=== PATIENT | male | born 1960 | race Caucasian/White ===

== ENCOUNTER 2020-10-03 07:16 | Emergency (ER) | payer OTHER ==
--- OUTSIDE RECORDS SUMMARY | 2020-10-03 07:18 | XMS REPORT | Continuity of Care Document ---
:1960 Author Organization [facility] t Address [address] [place] [address] Care Team Providers Name Role Phone 1, Sleep Lab Bed Attending Clinician Unavailable Doctor Unassigned, Name Attending Clinician Unavailable Problems This patient has no known problems. Allergies, Adverse Reactions, Alerts This patient has no known allergies or adverse reactions. Medications This patient has no known medications. Procedures This patient has no known procedures. Encounters Start End Encounter Admission Attending Care Care Encounter Source Date/Time Date/Time Type Type Clinicians Facility Department ID 2019-05-22 2019-05-22 [employer] 1, [facility] [id number] 12:30:19 15:00:19 Visit Sleep Lab [place] [id number] [place] [id number] [place] [id number] 2019-05-22 2019-05-22 Orders Doctor WELLS [id number] 00:00:00 00:00:00 Only Unassigned, W[place]LEY [id number] [facility] [id number] 2019-04-30 2019-04-30 [employer] 1, [facility] [id number] 14:55:37 17:25:37 Visit Sleep Lab [place] [id number] [facility] [id number] [place] [phone] 193 2019-04-30 2019-04-30 Orders Doctor WELLS [id number] 00:00:00 00:00:00 Only Unassigned, WESLEY [id number] [facility] [id number] [id number] Results This patient has no known results.
[2020-10-03] MEDS ORDERED: predniSONE 20 MG TAB ONE (08:33)
[2020-10-03] MEDS ORDERED: KETOROLAC 30 MG/ML INJ ONE (08:33)
[2020-10-03 09:56] LABS: SARS-COV-2 RT PCR POSITIVE (NEGATIVE)
--- NOTE | 2020-10-03 10:00 | ER ---
Nurse's Notes [facility] Name: Zhao Palencia Age: 60 yrs Sex: Male : 1960 Arrival Date: 10/03/2020 Time: 07:19 Bed 20 Private MD: Diagnosis: Acute upper respiratory infection, unspecified;Coronavirus infection, unspecified Presentation: 10/03 07:28 Chief complaint: Cough, SOB, chills, hot flashes, dizziness, headache, body aches, and hb intermittent N/V/D x 9 days. tested COVID positive 2 weeks ago. Coronavirus screen: Client presents with at least one sign or symptom that may indicate coronavirus-19. Standard/surgical mask placed on the client. Provider contacted for isolation considerations. Ebola Screen: No symptoms or risks identified at this time. Initial Sepsis Screen: Does the patient meet any 2 criteria? No. Patient's initial sepsis screen is negative. Does the patient have a suspected source of infection? No. Patient's initial sepsis screen is negative. Risk Assessment: Do you want to hurt yourself or someone else? Patient reports no desire to harm self or others. Onset of symptoms was September 25, 2020. 07:28 Method Of Arrival: Ambulatory hb 07:28 Acuity: MAIRA GUADALUPE 3 hb Historical: - Allergies: 07:31 No Known Allergies; hb - Home Meds: 08:43 losartan oral oral [Active]; Synthroid 125 mcg Oral tab 1 tab once daily [Active]; jl7 - PMHx: 08:43 Hypertension; Hypothyroidism; jl7 - Immunization history:: Adult Immunizations up to date. - Social history:: Smoking status: Patient denies any tobacco usage or history of. Patient/guardian denies using alcohol, street drugs, The patient lives with family. - Family history:: not pertinent. Screenin:36 Abuse screen: Denies threats or abuse. Denies injuries from another. Nutritional jl7 screening: No deficits noted. Tuberculosis screening: No symptoms or risk factors identified. Fall Risk None identified. Assessment: 08:36 General: Appears in no apparent distress. uncomfortable, Behavior is calm, cooperative, jl7 appropriate for age. Pain: Complains of pain in SILVEIRA Pain currently is 6 out of 10 on a pain scale. Neuro: Level of Consciousness is awake, alert, obeys commands, Oriented to person, place, time, situation. Cardiovascular: Patient's skin is warm and dry. Respiratory: Airway is patent Respiratory effort is even, unlabored, Respiratory pattern is regular, agonal. Derm: Skin is pink, warm \T\ dry. 09:17 Reassessment: Patient appears in no apparent distress at this time. Patient and/or jl7 family updated on plan of care and expected duration. Pain level reassessed. Patient is alert, oriented x 3, equal unlabored respirations, skin warm/dry/pink. SILVEIRA rated 4/10 at this time, provided pt with cool pack to apply to forehead while awaiting lab results Patient states feeling better. Vital Signs: 07:28 BP 160 / 105; Pulse 100; Resp 18; Temp 97.7; Pulse Ox 100% on R/A; Weight 117.93 kg; hb Height 6 ft. (182.88 cm); Pain 4/10; 08:36 BP 158 / 98; jl7 09:17 BP 140 / 90; Pulse 78; Resp 17; Pulse Ox 100% ; Pain 4/10; jl7 07:28 Body Mass Index 35.26 (117.93 kg, 182.88 cm) hb ED Course: 07:19 Patient arrived in ED. rg4 07:31 Triage completed. hb 07:31 Arm band placed on. hb 07:44 Glen Villa MD is Attending Physician. ma2 07:53 Jennifer Hendricks RN is Primary Nurse. jl7 08:36 Patient has correct armband on for positive identification. Placed in gown. Bed in low jl7 position. Call light in reach. Side rails up X 1. 08:38 COVID swab sent to lab. Flu and/or RSV swab sent to lab. jl7 10:07 No provider procedures requiring assistance completed. Patient did not have IV access jl7 during this emergency room visit. Administered Medications: 08:35 Drug: TORadol 60 mg Route: IM; Site: right gluteus; jl7 09:00 Follow up: Response: No adverse reaction; Pain is decreased jl7 08:36 Drug: predniSONE 40 mg Route: PO; jl7 09:19 Follow up: Response: No adverse reaction jl7 Outcome: 09:59 Discharge ordered by . ma2 10:07 Discharged to home ambulatory. jl7 10:07 Condition: stable 10:07 Discharge instructions given to patient, family, Instructed on discharge instructions, follow up and referral plans. medication usage, Demonstrated understanding of instructions, follow-up care, medications, Prescriptions given X 3. 10:08 Patient left the ED. jl7 Signatures: Hermelinda Cannon, RN RN Justine Fatima rg4 Jennifer Hendricks RN RN jl7 Glen Villa MD MD ma2 Corrections: (The following items were deleted from the chart) 09:18 08:36 Pain: Complains of pain in SILVEIRA Pain currently is 4 out of 10 on a pain scale. jl7 jl7
--- NOTE | 2020-10-03 10:00 | EDPHYS ---
Physician Documentation [facility] Name: Zhao Palencia Age: 60 yrs Sex: Male : 1960 Arrival Date: 10/03/2020 Time: 07:19 Bed 20 Private MD: ED Physician Glen Villa HPI: 10/03 08:58 This 60 yrs old Male presents to ER via Ambulatory with complaints of Flu ma2 Symptoms. 08:58 The patient or guardian reports flu symptoms. Onset: The symptoms/episode ma2 began/occurred gradually, 1 week(s) ago. Severity of symptoms: At their worst the symptoms were mild, in the emergency department the symptoms are unchanged. Associated signs and symptoms: The patient has no apparent associated signs or symptoms. The patient has experienced similar episodes in the past. Historical: - Allergies: 07:31 No Known Allergies; hb - Home Meds: 08:43 losartan oral oral [Active]; Synthroid 125 mcg Oral tab 1 tab once daily [Active]; jl7 - PMHx: 08:43 Hypertension; Hypothyroidism; jl7 - Immunization history:: Adult Immunizations up to date. - Social history:: Smoking status: Patient denies any tobacco usage or history of. Patient/guardian denies using alcohol, street drugs, The patient lives with family. - Family history:: not pertinent. ROS: 08:58 Constitutional: Negative for fever, chills, and weight loss. ma2 08:58 All other systems are negative. Exam: 08:58 Constitutional: This is a well developed, well nourished patient who is awake, alert, ma2 and in no acute distress. Head/Face: Normocephalic, atraumatic. Eyes: Pupils equal round and reactive to light, extra-ocular motions intact. Lids and lashes normal. Conjunctiva and sclera are non-icteric and not injected. Cornea within normal limits. Periorbital areas with no swelling, redness, or edema. ENT: Nares patent. No nasal discharge, no septal abnormalities noted. Tympanic membranes are normal and external auditory canals are clear. Oropharynx with no redness, swelling, or masses, exudates, or evidence of obstruction, uvula midline. Mucous membranes moist. Neck: Trachea midline, no thyromegaly or masses palpated, and no cervical lymphadenopathy. Supple, full range of motion without nuchal rigidity, or vertebral point tenderness. No Meningismus. Chest/axilla: Normal chest wall appearance and motion. Nontender with no deformity. No lesions are appreciated. Cardiovascular: Regular rate and rhythm with a normal S1 and S2. No gallops, murmurs, or rubs. Normal PMI, no JVD. No pulse deficits. Respiratory: Lungs have equal breath sounds bilaterally, clear to auscultation and percussion. No rales, rhonchi or wheezes noted. No increased work of breathing, no retractions or nasal flaring. Abdomen/GI: Soft, non-tender, with normal bowel sounds. No distension or tympany. No guarding or rebound. No evidence of tenderness throughout. Skin: Warm, dry with normal turgor. Normal color with no rashes, no lesions, and no evidence of cellulitis. MS/ Extremity: Pulses equal, no cyanosis. Neurovascular intact. Full, normal range of motion. Neuro: Awake and alert, GCS 15, oriented to person, place, time, and situation. Cranial nerves II-XII grossly intact. Motor strength 5/5 in all extremities. Sensory grossly intact. Cerebellar exam normal. Normal gait. Vital Signs: 07:28 BP 160 / 105; Pulse 100; Resp 18; Temp 97.7; Pulse Ox 100% on R/A; Weight 117.93 kg; hb Height 6 ft. (182.88 cm); Pain 4/10; 08:36 BP 158 / 98; jl7 09:17 BP 140 / 90; Pulse 78; Resp 17; Pulse Ox 100% ; Pain 4/10; jl7 07:28 Body Mass Index 35.26 (117.93 kg, 182.88 cm) hb MDM: 07:44 Patient medically screened. ma2 08:58 Differential Diagnosis: Bronchitis Influenza Upper Respiratory Infection Sinusitis ma2 Pharyngitis. Data reviewed: vital signs, nurses notes. Counseling: I had a detailed discussion with the patient and/or guardian regarding: the historical points, exam findings, and any diagnostic results supporting the discharge/admit diagnosis, the presence of at least one elevated blood pressure reading (>120/80) during this emergency department visit, the need for outpatient follow up. Response to treatment: the patient's symptoms have markedly improved after treatment, is + for covid, he has symptoms of bronchitis +/- covid, sats wnl, he has just finished a z-pack . 10/03 09:56 Order name: COVID-19/FLU A+B [facility] 10/03 08:11 Order name: Document PUI#; Complete Time: 08:36 ma2 10/03 08:11 Order name: Droplet/Contact Precautions; Complete Time: 08:36 ma2 10/03 08:11 Order name: Labs collected and sent; Complete Time: 08:36 ma2 10/03 08:11 Order name: Notify Health Dept [phone]/ ; Complete Time: 08:36 ma2 10/03 08:11 Order name: O2 Per Protocol; Complete Time: 08:36 ma2 Administered Medications: 08:35 Drug: TORadol 60 mg Route: IM; Site: right gluteus; jl7 09:00 Follow up: Response: No adverse reaction; Pain is decreased jl7 08:36 Drug: predniSONE 40 mg Route: PO; 7 09:19 Follow up: Response: No adverse reaction jl7 Disposition: 10/03/20 09:59 Discharged to Home. Impression: Acute upper respiratory infection, unspecified, Coronavirus infection, unspecified. - Condition is Stable. - Discharge Instructions: Upper Respiratory Infection, Adult. - Prescriptions for Albuterol Sulfate 2.5 mg /3 mL (0.083 %) Inhalation Solution for Nebulization - inhale 1 unit by NEBULIZATION route every 8 hours As needed; 1 box. Diclofenac Sodium 75 mg Oral Tablet Sustained Release - take 1 tablet by ORAL route 2 times per day; 30 tablet. Medrol (Manjinder) 4 mg Oral Tablets, Dose Pack - take 1 tablet by ORAL route as directed - follow package instructions; 1 packet. - Work release form, Medication Reconciliation Form, Thank You Letter, Antibiotic Education, Prescription Opioid Use form. - Follow up: Private Physician; When: Tomorrow; Reason: Continuance of care. Signatures: Dispatcher [employer] [facility] Hermelinda Cannon RN Jennifer Dukes RN RN jl7 Glen Villa MD MD ma2 Corrections: (The following items were deleted from the chart) 09:11 08:11 Influenza Screen (A \T\ B)+BA.LAB.BRZ ordered. EDMS EDMS 09:11 08:15 CORONAVIRUS+MR.LAB.BRZ ordered. EDMS EDMS 10:08 09:59 10/03/2020 09:59 Discharged to Home. Impression: Acute upper respiratory jl7 infection, unspecified; Coronavirus infection, unspecified. Condition is Stable. Discharge Instructions: Upper Respiratory Infection, Adult. Prescriptions for Albuterol Sulfate 2.5 mg /3 mL (0.083 %) Inhalation Solution for Nebulization - inhale 1 unit by NEBULIZATION route every 8 hours As needed; 1 box, Diclofenac Sodium 75 mg Oral Tablet Sustained Release - take 1 tablet by ORAL route 2 times per day; 30 tablet, Medrol (Manjinder) 4 mg Oral Tablets, Dose Pack - take 1 tablet by ORAL route as directed - follow package instructions; 1 packet. and Forms are Medication Reconciliation Form, Thank You Letter, Antibiotic Education, Prescription Opioid Use. Follow up: Private Physician; When: Tomorrow; Reason: Continuance of care. ma2
[2020-10-03 10:14] VITALS: TEMP 97.7; O2SAT 100
[2020-10-03 10:16] VITALS: BP 140/90
== END 2020-10-03 10:08 | disposition home or self-care (01) ==
LOC: ER 07:16
DX: U07.1 COVID-19 (principal); J06.9 Acute upper respiratory infection, unspecified; I10 Essential (primary) hypertension; E03.9 Hypothyroidism, unspecified
CPT/HCPCS: 0240U; J7512; 96372; 99283

== ENCOUNTER 2021-12-23 07:26 | Observation (INO) | payer OTHER ==
--- OUTSIDE RECORDS SUMMARY | 2021-12-23 07:29 | XMS REPORT | Continuity of Care Document ---
:1960 Author Organization [facility] t Address [address] [place] [address] [address] [place] [address] Care Team Providers Name Role Phone Kate Powers Primary Care Physician 2, Lab Attending Clinician Unavailable Caden DICKERSON C Attending Clinician Doctor Unassigned, Name Attending Clinician Unavailable 1, Sleep Lab Bed Attending Clinician Unavailable Payers Payer Name Policy Type Policy Number Effective Date Expiration Date S ource Problems This patient has no known problems. Allergies, Adverse Reactions, Alerts Allergy Allergy Status Severity Reaction(s) Onset Inactive Treating Comm ents Source Name Type Date Date Clinician Statins- Propensi Active Other - See LE U niv[facility]o [facility] to comments 6- fatigue ity of [place] adverse 00:00: [place] e reaction 00 Medical Inhibito s Branch rs Social History Social Habit Start Date Stop Date Quantity Comments Source Tobacco use and 2017-02-09 2017-02-09 Never used [facility] exposure 00:00:00 00:00:00 Medical Branch Sex Ass[birth year] [facility] 00:00:00 00:00:00 Medical Branch Smoking Status Start Date Stop Date Source Never smoker [facility] Branch Medications Ordered Filled Start Stop Current Ordering Indication Dosage Frequency Signature Comments Components Source Medication Medication Date Date Medication? Clinician (SIG) Name Name diclofenac 2018- Yes 75mg Take 1 Unive rs 75 mg EC 2-27 tablet by ity of tablet 00:00: mouth [place] 00 (two) Medical times Branch daily with meals. methylPREDN Yes Take by Un kayode ISolone 2-27 mouth ity of (MEDROL, 00:00: SEE-INSTRU David as YOLANDA,) 4 mg 00 CTIONS. Medica l tablets follow Branch package directions diclofenac Yes 75mg Take 1 Unive rs 75 mg EC 2-27 tablet by ity of tablet 00:00: mouth 2 (two) Medical times [place] daily with meals. methylPREDN Yes Take by Un kayode ISolone 2-27 mouth ity of (MEDROL, 00:00: SEE-INSTRU [place] as YOLANDA,) 4 mg 00 CTIONS. Medica l tablets follow Branch package directions meloxicam Yes Univers 15 mg 6-18 ity of tablet 00:00: [facility] meloxicam Yes Univers 15 mg 6-18 ity of tablet 00:00: [facility] fluticasone Yes Univer s 0.05 % 6-06 ity of cream 00:00: [facility] fluticasone Yes Univer s 0.05 % 6-06 ity of cream 00:00: [facility] ALPRAZolam Yes Univers 0.5 mg 5-23 ity of tablet 00:00: [facility] BENICAR 20 0 Yes Univers mg tablet 5-23 ity of 00:00: [facility] ALPRAZolam 0 Yes Univers 0.5 mg 5-23 ity of tablet 00:00: [facility] BENICAR 20 0 Yes Univers mg tablet 5-23 ity of 00:00: [place] [facility] Branch SYNTHROID Yes Univers 150 mcg 5-17 ity of tablet 00:00: [facility] SYNTHROID Yes Univers 150 mcg 5-17 ity of tablet 00:00: [facility] Procedures Procedure Date / Time Performed Performing Clinician Sour e PHYSICIAN ORDERS 2021-09-28 06:01:00 Doctor Unassigned, No [facility]ive [facility] [place] Name Medical Branch Encounters Start End Encounter Admission Attending Care Care Encounter Source Date/Time Date/Time Type Type Clinicians Facility Department ID 2021-10-06 2021-10-06 Exchange Floor Manager 2, Adc Lab [facility] [id number] Univers 09:45:00 09:45:00 Visit Linnea Negrete KUSH[place] 350.1.1 3.10 ity of [place] [id number] Juan s [place] [id number] Ak dical [address] 2021-09-28 2021-09-28 Orders Doctor RUSSELL [id number] Univers 00:00:00 00:00:00 Only Unassigned, [place] [id number] ity of [facility] [id number] David as [id number] [address] 2019-05-22 2019-05-22 Exchange Floor Manager 1, [facility] [id number] 12:30:19 15:00:19 Visit Sleep Lab [place] [id number] [place] [id number] [place] [id number] 193 2019-05-22 2019-05-22 Orders Doctor WELLS [id number] 00:00:00 00:00:00 Only Unassigned, WESLEY [id number] [facility] [id number] [id number] 2019-04-30 2019-04-30 Exchange Floor Manager 1, [facility] [id number] 14:55:37 17:25:37 Visit Sleep Lab [place] [id number] [place] [id number] [place] [id number] 193 2019-04-30 2019-04-30 Orders Doctor RUSSELL [id number] 00:00:00 00:00:00 Only Unassigned, WESLEY [id number] [facility] [id number] [id number] Results This patient has no known results.
[2021-12-23] MEDS ORDERED: ASPIRIN 81 MG CHEWABLE TABLET ONE (07:47)
--- NOTE | 2021-12-23 07:59 | EDPHYS ---
Physician Documentation [facility] Name: Zhao Palencia Age: 61 yrs Sex: Male : 1960 Arrival Date: 12/23/2021 Time: 07:27 Bed 6 Private MD: ED Physician Josemanuel Moreno HPI: 12/23 07:46 This 61 yrs old Male presents to ER via Wheelchair with complaints of Chest arron Pressure. 07:46 The patient or guardian reports chest pain that is located primarily in the substernal arron area. Onset: just prior to arrival, this morning. The pain does not radiate. Associated signs and symptoms: Pertinent positives: shortness of breath. The chest pain is described as a heaviness, causing indigestion, a pressure. Duration: The patient or guardian reports multiple episodes. Severity of pain: At its worst the pain was mild in the emergency department the pain has improved. The patient has not experienced similar symptoms in the past. Historical: - Allergies: 07:38 No Known Allergies; jl7 - Home Meds: 07:38 losartan Oral [Active]; Synthroid 125 mcg Oral tab 1 tab once daily [Active]; jl7 - PMHx: 07:38 Hypertension; Hypothyroidism; jl7 - Immunization history:: Client reports receiving the 2nd dose of the Covid vaccine, Moderna. - Social history:: Smoking status: Patient denies any tobacco usage or history of. Patient uses alcohol, on a daily basis. 2-3 drinks. - Family history:: not pertinent. ROS: 07:46 Constitutional: Negative for fever, chills, and weight loss, Eyes: Negative for injury, arron pain, redness, and discharge, ENT: Negative for injury, pain, and discharge, Neck: Negative for injury, pain, and swelling, Abdomen/GI: Negative for abdominal pain, nausea, vomiting, diarrhea, and constipation, Back: Negative for injury and pain, : Negative for injury, bleeding, discharge, and swelling, MS/Extremity: Negative for injury and deformity, Skin: Negative for injury, rash, and discoloration, Neuro: Negative for headache, weakness, numbness, tingling, and seizure, Psych: Negative for depression, anxiety, suicide ideation, homicidal ideation, and hallucinations, Allergy/Immunology: Negative for hives, rash, and allergies, Endocrine: Negative for neck swelling, polydipsia, polyuria, polyphagia, and marked weight changes, Hematologic/Lymphatic: Negative for swollen nodes, abnormal bleeding, and unusual bruising. 07:46 Cardiovascular: Positive for chest pain. 07:46 Respiratory: Positive for shortness of breath, at rest. Exam: 07:46 Constitutional: This is a well developed, well nourished patient who is awake, alert, arron and in no acute distress. Head/Face: Normocephalic, atraumatic. Eyes: Pupils equal round and reactive to light, extra-ocular motions intact. Lids and lashes normal. Conjunctiva and sclera are non-icteric and not injected. Cornea within normal limits. Periorbital areas with no swelling, redness, or edema. ENT: Nares patent. No nasal discharge, no septal abnormalities noted. Tympanic membranes are normal and external auditory canals are clear. Oropharynx with no redness, swelling, or masses, exudates, or evidence of obstruction, uvula midline. Mucous membranes moist. Neck: Trachea midline, no thyromegaly or masses palpated, and no cervical lymphadenopathy. Supple, full range of motion without nuchal rigidity, or vertebral point tenderness. No Meningismus. Chest/axilla: Normal chest wall appearance and motion. Nontender with no deformity. No lesions are appreciated. Cardiovascular: Regular rate and rhythm with a normal S1 and S2. No gallops, murmurs, or rubs. Normal PMI, no JVD. No pulse deficits. Respiratory: Lungs have equal breath sounds bilaterally, clear to auscultation and percussion. No rales, rhonchi or wheezes noted. No increased work of breathing, no retractions or nasal flaring. Abdomen/GI: Soft, non-tender, with normal bowel sounds. No distension or tympany. No guarding or rebound. No evidence of tenderness throughout. Back: No spinal tenderness. No costovertebral tenderness. Full range of motion. Male : Normal genitalia with no discharge or lesions. Skin: Warm, dry with normal turgor. Normal color with no rashes, no lesions, and no evidence of cellulitis. MS/ Extremity: Pulses equal, no cyanosis. Neurovascular intact. Full, normal range of motion. Neuro: Awake and alert, GCS 15, oriented to person, place, time, and situation. Cranial nerves II-XII grossly intact. Motor strength 5/5 in all extremities. Sensory grossly intact. Cerebellar exam normal. Normal gait. Psych: Awake, alert, with orientation to person, place and time. Behavior, mood, and affect are within normal limits. 07:46 Musculoskeletal/extremity: DVT Exam: No signs of deep vein thrombosis. no pain, no swelling, no tenderness, negative Homans' sign noted on exam, no appreciated bluish discoloration, no erythema, no increased warmth. Vital Signs: 07:28 BP 164 / 67; Pulse 75; Resp 15; Temp 98.1; Pulse Ox 100% on R/A; Weight 120.2 kg; jl7 Height 6 ft. 0 in. (182.88 cm); Pain 5/10; 08:15 BP 166 / 96; Pulse 68; Resp 14; Pulse Ox 97% ; jg9 09:00 BP 154 / 68; Pulse 56; Resp 15 S; Pulse Ox 98% on R/A; jg9 07:28 Body Mass Index 35.94 (120.20 kg, 182.88 cm) 7 MDM: 07:37 Patient medically screened. arron 07:48 Differential diagnosis: abnormal EKG, acute myocardial infarction, coronary artery arron disease chest wall pain, esophagitis, pancreatitis, pneumonia, pneumothorax, pulmonary embolus, stable angina, unstable angina. HEART Score: History: Moderately Suspicious (1), ECG: Normal (0), Age: > 45 and < 65 years (1), Risk Factors: > or = 3 Risk factors for atherosclerotic disease (2), [Hypertension] [+ Family HX] [Obesity] Troponin: < or = 1 x Normal Limit (0). The patient was given aspirin in the Emergency Department. The patient's deep vein thrombosis risk score was calculated as follows: Total Score: 0. This patient was found to be at low risk for a deep vein thrombosis by using the Well's assessment criteria. The patient's pulmonary embolism risk score was calculated as follows: Total Score: 0-2 points. This patient was found to be at low risk for a pulmonary embolism by using the Well's assessment criteria. PAULIE Risk Score: TOTAL SCORE = 0. Data reviewed: vital signs, nurses notes, lab test result(s), EKG, radiologic studies, CT scan, plain films. Data interpreted: telemetry monitor: rate is 75 beats/min, rhythm is regular, Pulse oximetry: on room air is 100 %. Test interpretation: by ED physician or midlevel provider: ECG, plain radiologic studies. Counseling: I had a detailed discussion with the patient and/or guardian regarding: the historical points, exam findings, and any diagnostic results supporting the discharge/admit diagnosis, lab results, radiology results, the need for further work-up and treatment in the hospital. 12/23 07:39 Order name: CBC with Diff [facility] 12/23 07:40 Order name: Basic Metabolic Panel; Complete Time: 08:49 arron 12/23 07:40 Order name: CBC with Diff; Complete Time: 08:26 arron 12/23 07:40 Order name: LFT's; Complete Time: 08:49 arron 12/23 07:40 Order name: Magnesium; Complete Time: 08:49 arron 12/23 07:40 Order name: NT PRO-BNP; Complete Time: 08:49 arron 12/23 07:40 Order name: PT-INR; Complete Time: 08:26 arron 12/23 07:40 Order name: Troponin HS; Complete Time: 08:49 arron 12/23 07:40 Order name: SARS-COV-2 RT PCR (Document "Date of Onset" if Symptomatic) [facility] 12/23 07:40 Order name: Lipase; Complete Time: 08:49 arron 12/23 07:49 Order name: TSH; Complete Time: 08:49 eb 12/23 13:24 Order name: Troponin High Sensitivity [facility] 12/23 07:39 Order name: EKG; Complete Time: 07:40 9 12/23 07:39 Order name: Cardiac monitoring; Complete Time: 07:42 j9 12/23 07:39 Order name: EKG - Nurse/Tech; Complete Time: 07:42 j9 12/23 07:39 Order name: IV Saline Lock; Complete Time: 07:42 j9 12/23 07:39 Order name: Labs collected and sent; Complete Time: 07:42 jg9 12/23 07:39 Order name: O2 Per Protocol; Complete Time: 07:42 jg9 12/23 07:40 Order name: XRAY Chest (1 view); Complete Time: 09:31 arron 12/23 07:40 Order name: EKG; Complete Time: 07:41 arron 12/23 07:40 Order name: CT Chest For PE Angio; Complete Time: 09:31 arron 12/23 07:45 Order name: Echo w/ Doppler [facility] 12/23 13:24 Order name: Lipid Profile [facility] 12/23 07:39 Order name: O2 Sat Monitoring; Complete Time: 07:42 jg9 12/23 07:40 Order name: Cardiac monitoring; Complete Time: 07:41 arron 12/23 07:40 Order name: EKG - Nurse/Tech; Complete Time: 07:41 arron 12/23 07:40 Order name: IV Saline Lock; Complete Time: 07:41 arron 12/23 07:40 Order name: Labs collected and sent; Complete Time: 07:41 arron 12/23 07:40 Order name: O2 Per Protocol; Complete Time: 07:41 arron 12/23 07:40 Order name: O2 Sat Monitoring; Complete Time: 07:41 arron Administered Medications: 07:44 Drug: Aspirin Chewable Tablet 324 mg Route: PO; jg9 08:01 Drug: Pepcid (famotidine) 20 mg Route: IVP; Site: right forearm; jg9 13:09 Follow up: Response: No adverse reaction jg9 08:02 Drug: Lovenox (enoxaparin) 100 mg Route: Sub-Q; Site: right lower abdomen; jg9 13:08 Follow up: Response: No adverse reaction jg9 08:03 Drug: Lopressor (metoprolol TARTRATE)) 25 mg Route: PO; jg9 13:08 Follow up: Response: No adverse reaction; Blood pressure is lowered jg9 Disposition Summary: 12/23/21 07:58 Hospitalization Ordered Hospitalization Status: Observation arron Provider: Sunday Pinto cha Location: Telemetry/MedSurg (observation) arron Condition: Stable arron Problem: new arron Symptoms: have improved arron Bed/Room Type: Standard arron Room Assignment: 207(12/23/21 12:24) ss Diagnosis - Chest pain, unspecified arron - Dyspnea arron - Essential (primary) hypertension arron Forms: - Medication Reconciliation Form arron - SBAR form arron Signatures: Dispatcher [employer] EDJosemanuel Cruz MD MD cha Smirch, Shelby, RN RN Jennifer Farr RN RN jl7 Jaky Quinones RN RN jg9 Corrections: (The following items were deleted from the chart) 08:01 07:40 Chest Single View+RAD.RAD.BRZ ordered. EDMS EDMS 08:16 07:40 BASIC METABOLIC PANEL+C.LAB.BRZ ordered. EDMS EDMS 08:16 07:40 Troponin High Sensitivity+C.LAB.BRZ ordered. EDMS EDMS 12:24 07:58 arron ss
--- NOTE | 2021-12-23 07:59 | ER ---
Nurse's Notes [facility] Name: Zhao Palencia Age: 61 yrs Sex: Male : 1960 Arrival Date: 12/23/2021 Time: 07:27 Bed 6 Private MD: Diagnosis: Chest pain, unspecified;Dyspnea;Essential (primary) hypertension Presentation: 12/23 07:28 Chief complaint: Patient states: Non-radiating left sided chest pain since 0700, jl7 constant, feels like pressure. Coronavirus screen: At this time, the client does not indicate any symptoms associated with coronavirus-19. Ebola Screen: No symptoms or risks identified at this time. Initial Sepsis Screen: Does the patient meet any 2 criteria? No. Patient's initial sepsis screen is negative. Does the patient have a suspected source of infection? No. Patient's initial sepsis screen is negative. Risk Assessment: Do you want to hurt yourself or someone else? Patient reports no desire to harm self or others. Onset of symptoms was December 23, 2021 at 07:00. 07:28 Method Of Arrival: Wheelchair jl7 07:28 Acuity: MARIA GUADALUPE 2 jl7 Triage Assessment: 07:28 General: Appears in no apparent distress. uncomfortable, Behavior is calm, cooperative, jl7 appropriate for age. Pain: Complains of pain in anterior aspect of left upper chest Pain currently is 5 out of 10 on a pain scale. Quality of pain is described as pressure, Pain began 30 min ago. Neuro: Level of Consciousness is awake, alert, obeys commands, Oriented to person, place, time, situation. Cardiovascular: Patient's skin is warm and dry. Respiratory: Airway is patent Respiratory effort is even, unlabored, Respiratory pattern is regular, symmetrical. Derm: Skin is pink, warm \T\ dry. Historical: - Allergies: 07:38 No Known Allergies; jl7 - Home Meds: 07:38 losartan Oral [Active]; Synthroid 125 mcg Oral tab 1 tab once daily [Active]; jl7 - PMHx: 07:38 Hypertension; Hypothyroidism; jl7 - Immunization history:: Client reports receiving the 2nd dose of the Covid vaccine, Moderna. - Social history:: Smoking status: Patient denies any tobacco usage or history of. Patient uses alcohol, on a daily basis. 2-3 drinks. - Family history:: not pertinent. Screenin:40 Abuse screen: Denies threats or abuse. Denies injuries from another. Nutritional jl7 screening: No deficits noted. Tuberculosis screening:. Fall Risk IV access (20 points). Assessment: 07:28 Pain: Pain radiates to left arm-left shoulder. jg9 Vital Signs: 07:28 BP 164 / 67; Pulse 75; Resp 15; Temp 98.1; Pulse Ox 100% on R/A; Weight 120.2 kg; jl7 Height 6 ft. 0 in. (182.88 cm); Pain 5/10; 08:15 BP 166 / 96; Pulse 68; Resp 14; Pulse Ox 97% ; jg9 09:00 BP 154 / 68; Pulse 56; Resp 15 S; Pulse Ox 98% on R/A; jg9 07:28 Body Mass Index 35.94 (120.20 kg, 182.88 cm) jl7 ED Course: 07:27 Patient arrived in ED. ds1 07:28 Jaky Quinones, RN is Primary Nurse. jg9 07:28 Arm band placed on right wrist. jl7 07:30 Patient maintains SpO2 saturation greater than 95% on room air. jl7 07:30 Patient has correct armband on for positive identification. school lunch monitor on. Pulse jl7 ox on. NIBP on. 07:37 Josemanuel Moreno MD is Attending Physician. arron 07:38 Triage completed. jl7 07:38 EKG done, by ED staff, reviewed by Josemanuel Moreno MD. dh3 07:44 Inserted saline lock: 20 gauge in right forearm, using aseptic technique. Blood jg9 collected. 07:57 Sunday Pinto is Hospitalizing Provider. arron 08:29 XRAY Chest (1 view) In Process Unspecified. EDMS 08:57 CT Chest For PE Angio In Process Unspecified. EDMS 13:07 No provider procedures requiring assistance completed. jg9 13:08 Patient admitted, IV remains in place. jg9 Administered Medications: 07:44 Drug: Aspirin Chewable Tablet 324 mg Route: PO; jg9 08:01 Drug: Pepcid (famotidine) 20 mg Route: IVP; Site: right forearm; jg9 13:09 Follow up: Response: No adverse reaction jg9 08:02 Drug: Lovenox (enoxaparin) 100 mg Route: Sub-Q; Site: right lower abdomen; jg9 13:08 Follow up: Response: No adverse reaction jg9 08:03 Drug: Lopressor (metoprolol TARTRATE)) 25 mg Route: PO; jg9 13:08 Follow up: Response: No adverse reaction; Blood pressure is lowered jg9 Outcome: 07:58 Decision to Hospitalize by Provider. arron 13:08 Admitted to Med/surg accompanied by tech, family with patient, with chart, Report jg9 called to LYNNE Segura 13:08 Condition: stable 13:29 Patient left the ED. jg9 Signatures: Dispatcher [employer] EDMS Josemanuel Moreno MD MD cha Sanford, Demi ds1 Jennifer Hendricks RN RN jl7 Nneka Lopes dh3 Jaky Quinones RN RN jg9
[2021-12-23] MEDS ORDERED: METOPROLOL TAR 25 MG TAB ONE (08:02)
[2021-12-23] MEDS ORDERED: ENOXAPARIN 100 MG/ML SYR SQ ONE (08:03)
[2021-12-23] MEDS ORDERED: FAMOTIDINE 20 MG/2 ML VIAL IV ONE (08:03)
[2021-12-23 08:16] LABS: Absolute Lymphocytes (CBC) 1.5 K/uL (0.7-4.9); Lymphocytes % 38.4 % (15.3-44.8); MPV 7.3 fL (7.6-11.3); RBC Red Blood Cell Count 4.09 M/uL (4.33-5.43)
[2021-12-23 08:22] LABS: Protime INR 1.03
[2021-12-23 08:39] LABS: ALT/SGPT 34 U/L (12-78); AST/SGOT 24 U/L (15-37); Albumin 3.7 g/dL (3.4-5.0); Alkaline Phosphatase 74 U/L (45-117); BUN Blood Urea Nitrogen 21 mg/dL (7-18); Bicarbonate 22 mmol/L (21-32); Bilirubin Direct 0.2 mg/dL (0-0.2); Bilirubin Total 0.7 mg/dL (0.2-1.0); Glucose Level 98 mg/dL (74-106); Lipase 48 U/L (73-393); Magnesium 2.3 mg/dL (1.8-2.4); NT PRO-BNP 35 pg/mL (<125); Potassium 4.1 mmol/L (3.5-5.1); Protein, Total 7.8 g/dL (6.4-8.2); Sodium Level 138 mmol/L (136-145); Troponin High Sensitivity 3.8 pg/mL (<58.9)
--- NOTE | 2021-12-23 09:23 | RAD REPORT ---
EXAM DESCRIPTION: CT - Chest For Pe Angio - 12/23/2021 8:55 am CLINICAL HISTORY: Chest pain. Chest pain;Dyspnea COMPARISON: No comparisons TECHNIQUE: CT angiogram of the pulmonary arteries was performed with MIP. All CT scans are performed using dose optimization technique as appropriate and may include automated exposure control or mA/KV adjustment according to patient size. FINDINGS: No evidence of pulmonary thromboembolism. No acute aortic finding demonstrated. The lungs are clear. No significant pericardial or pleural fluid. No concerning bony finding. IMPRESSION: No evidence of pulmonary thromboembolism. No acute lung findings.
--- NOTE | 2021-12-23 09:23 | RAD REPORT ---
EXAM DESCRIPTION: RAD - Chest Single View - 12/23/2021 8:28 am CLINICAL HISTORY: Chest pain;Dyspnea Chest pain. COMPARISON: CHEST PA AND LAT 2 VIEW dated 10/12/2011 FINDINGS: Portable technique limits examination quality. The lungs are grossly clear. The heart is normal in size. No displaced fractures. IMPRESSION: No acute intrathoracic process suspected.
--- NOTE | 2021-12-23 11:57 | P.HP ---
Certification for Inpatient Patient admitted to: Observation With expected LOS: <2 Midnights Practitioner: I am a practitioner with admitting privileges, knowledge of patient current condition, hospital course, and medical plan of care. Services: Services provided to patient in accordance with Admission requirements found in Title 42 Section 412.3 of the Code of Federal Regulations Patient History Date of Service: 12/23/21 Reason for admission: Chest pain History of Present Illness: 61-year-old gentleman with a history of hypertension and hypothyroidism presented to the emergency department with a complaint of left anterior chest pain of sudden onset, waking up from sleep. Patient describes associated chest pressure in the left chest. Chest pain is nonradiating, associated with palpitation and shortness of breath, no associated nausea or vomiting or diaphoresis. Patient denied any abdominal pain. No known aggravating factors or relieving factors. Patient was given aspirin in the ED. EKG demonstrated no significant ischemic changes, initial troponin negative, chest x-ray shows no acute disease. Patient reports a previous stress test 5 to 6 years ago which wa s normal. He is placed under observation for chest pain rule out. - Past Medical/Surgical History Diabetic: No -: Hypertension -: Hypothyroidism - Family History Mother -: Heart disease - Social History Alcohol use: Yes CD- Drugs: No Place of Residence: Home Review of Systems Other: Except as documented, all other systems reviewed and negative. Physical Examination - Physical Exam General: Alert, In no apparent distress, Oriented x3 HEENT: Normocephalic, Mucous membr. moist/pink, Sclerae nonicteric Neck: Supple, JVD not distended Respiratory: Clear to auscultation bilaterally, Normal air movement Cardiovascular: No edema, Regular rate/rhythm, Normal S1 S2, No murmurs Gastrointestinal: Normal bowel sounds, Soft and benign, Non-distended, No tenderness Musculoskeletal: No swelling, No tenderness Integumentary: No rashes, No erythema, No cyanosis Neurological: Normal speech, Normal strength at 5/5 x4 extr, Cranial nerves 3-12 intact Lymphatics: No axilla or inguinal lymphadenopathy - Studies Laboratory Data (last 24 hrs) 12/23/21 07:45: PT 11.3, INR 1.03 12/23/21 07:45: WBC 3.9 L, Hgb 14.0, Hct 41.0, Plt Count 282 12/23/21 07:45: Sodium 138, Potassium 4.1, BUN 21 H, Creatinine 0.83, Glucose 98, Magnesium 2.3, Total Bilirubin 0.7, AST 24, ALT 34, Alkaline Phosphatase 74, Lipase 48 L 12/23/21 07:39: Sodium Cancelled, Potassium Cancelled, BUN Cancelled, Creatinine Cancelled, Glucose Cancelled Assessment and Plan - Problems (Diagnosis) (1) Hypertension Current Visit: Yes Status: Acute (2) Hypothyroidism Current Visit: Yes Status: Acute (3) Chest pain Current Visit: Yes Status: Acute - Plan Place patient under observation. Trend troponin Aspirin, beta-adriana. Check lipid profile Continue home dose Synthroid Echocardiogram done and the result is pending. Cardiology consult. Continue home antihypertensives. Hydralazine as needed for BP spikes. - Advance Directives Does patient have a Living Will: No Does patient have a Durable POA for Healthcare: No
[2021-12-23] MEDS ORDERED: HYDRALAZINE HCL 20 MG/ML VIAL IV PRN (12:00)
[2021-12-23] MEDS ORDERED: NITROGLYCERIN 0.4 MG/TAB SL PRN (12:16)
--- NOTE | 2021-12-23 12:47 | ECHO ---
HEIGHT: 6 ft 0 in WEIGHT: 264 lb 15.93 oz DATE OF STUDY: 12/23/[address]: Josemanuel Moreno MD 2-DIMENSIONAL: YES M.MODE: YES DOPPLER: YES COLOR FLOW: YES TDS: NO PORTABLE: YES DEFINITY: NO BUBBLE STUDY: NO DIAGNOSIS: CHEST PAIN CARDIAC HISTORY: CATHERIZATION: SURGERY: PROSTHETIC VALVE: PACEMAKER: MEASUREMENTS (cm) DIASTOLIC (NORMALS) SYSTOLIC (NORMALS) IVSd 1.1 (0.6-1.2) LA Diam (1.9-4.0) LVEF 54% LVIDd 4.6 (3.5-5.7) LVIDs 3.3 (2.0-3.5) %FS 28% LVPWd 1.1 (0.6-1.2) Ao Diam 3.1 (2.0-3.7) 2 DIMENSIONAL ASSESSMENT: RIGHT ATRIUM: NORMAL LEFT ATRIUM: NORMAL RIGHT VENTRICLE: NORMAL LEFT VENTRICLE: NORMAL TRICUSPID VALVE: NORMAL MITRAL VALVE: NORMAL PULMONIC VALVE: NORMAL AORTIC VALVE: NORMAL PERICARDIAL EFFUSION: NONE AORTIC ROOT: NORMAL LEFT VENTRICULAR WALL MOTION: NORMAL DOPPLER/COLOR FLOW: NORMAL COMMENTS: NORMAL 2D ECHOCARDIOGRAM WITH DOPPLER. NO WALL MOTION ABNORMALITY. NO EFFUISON. TECHNOLOGIST: Eric UGALDE
[2021-12-23 13:24] LABS: Troponin High Sensitivity 3.7 pg/mL (<58.9)
[2021-12-23 15:39] VITALS: TEMP 98.1
[2021-12-23 15:41] VITALS: BP 154/68; O2SAT 98
[2021-12-23 16:23] VITALS: BMI 35.8
--- NOTE | 2021-12-23 16:34 | P.DS ---
Admission Date: 12/23/21 Discharge Date: 12/23/21 Disposition: ROUTINE DISCHARGE Discharge Condition: FAIR Reason for Admission: Chest pain - Problems (1) Hypertension Status: Acute (2) Hypothyroidism Status: Acute (3) Chest pain Status: Acute Brief History of Present Illness: 61-year-old gentleman with a history of hypertension and hypothyroidism presented to the emergency department with a complaint of left anterior chest pain of sudden onset, waking up from sleep. Patient describes associated chest pressure in the left chest. Chest pain is nonradiating, associated with palpitation and shortness of breath, no associated nausea or vomiting or diaphoresis. Patient denied any abdominal pain. No known aggravating factors or relieving factors. Patient was given aspirin in the ED. EKG demonstrated no significant ischemic changes, initial troponin negative, chest x-ray shows no acute disease. Patient reports a previous stress test 5 to 6 years ago which was normal. He is placed under observation for chest pain rule out. Hospital Course: Is on observation on the medical floor and troponin trended. Patient troponin trended negative. He was chest pain-free during my assessment and after admission. He was seen and evaluated by cardiology-Dr. Castellon who recommended discharge for outpatient stress test. Patient lipid profile within acceptable range. He is prescribed aspirin. He is informed to continue his other home medications. He acknowledged the need to call Dr. Castellon next week for arrangement for stress test. Vital Signs/Physical Exam: Temp Pulse Resp BP Pulse Ox 98.1 F 56 15 154/68 H 12/23/21 07:28 12/23/21 09:00 12/23/21 09:00 12/23/21 09:00 General: Alert, In no apparent distress, Oriented x3 HEENT: Mucous membr. moist/pink Neck: Supple, JVD not distended Respiratory: Clear to auscultation bilaterally, Normal air movement Cardiovascular: Regular rate/rhythm, Normal S1 S2, No murmurs Gastrointestinal: Normal bowel sounds, Soft and benign, Non-distended, No tenderness Musculoskeletal: No swelling Integumentary: No rashes Neurological: Normal strength at 5/5 x4 extr Laboratory Data at Discharge: WBC 3.9 K/uL (4.3-10.9) L 12/23/21 07:45 Hgb 14.0 g/dL (13.6-17.9) 12/23/21 07:45 Hct 41.0 % (39.6-49.0) 12/23/21 07:45 Plt Count 282 K/uL (152-406) 12/23/21 07:45 PT 11.3 SECONDS (9.5-12.5) 12/23/21 07:45 INR 1.03 12/23/21 07:45 Sodium 138 mmol/L (136-145) 12/23/21 07:45 Potassium 4.1 mmol/L (3.5-5.1) 12/23/21 07:45 BUN 21 mg/dL (7-18) H 12/23/21 07:45 Creatinine 0.83 mg/dL (0.55-1.3) 12/23/21 07:45 Glucose 98 mg/dL (74-106) 12/23/21 07:45 Magnesium 2.3 mg/dL (1.8-2.4) 12/23/21 07:45 Total Bilirubin 0.7 mg/dL (0.2-1.0) 12/23/21 07:45 AST 24 U/L (15-37) 12/23/21 07:45 ALT 34 U/L (12-78) 12/23/21 07:45 Alkaline Phosphatase 74 U/L (45-117) 12/23/21 07:45 Triglycerides 141 mg/dL (<150) 12/23/21 12:49 Cholesterol 166 mg/dL (<200) 12/23/21 12:49 HDL Cholesterol 64 mg/dL (40-60) H 12/23/21 12:49 Cholesterol/HDL Ratio 2.59 12/23/21 12:49 Lipase 48 U/L (73-393) L 12/23/21 07:45 Home Medications: Aspirin [Aspirin EC] 81 mg PO DAILY #30 tablet. 12/23/21 Atorvastatin Calcium [Lipitor*] 1 tab PO DAILY 12/23/21 Ezetimibe 1 tab PO DAILY 12/23/21 Irbesartan 20 mg PO EVERY 3RD DAY 12/23/21 Levothyroxine Sodium [Synthroid] 1 tab PO DAILY 12/23/21 New Medications: Aspirin [Aspirin EC] 81 mg PO DAILY #30 tablet. Diet: [facility] Activity: Ad jose daniel Followup: Don Castellon MD [ACTIVE - CAN ADMIT] - 1 Week (Please call [phone] for arrangement for stress test.) Waldemar Bob MD [Primary Care Provider] - (Call to schedule appointment)
[2021-12-23 17:37] LABS: Urine Appearance CLEAR (Clear); Urine Bilirubin NEGATIVE (Negative); Urine Blood NEGATIVE (Negative); Urine Color YELLOW (Yellow); Urine Glucose NEGATIVE (Negative); Urine Protein NEGATIVE (Negative); Urine Specific Gravity >=1.030 (1.005-1.030); Urine pH 5.5 (5.0-7.0)
[2021-12-23 18:17] LABS: Urine Microscopic Reflex NO UMIC
[2021-12-23] MEDS ORDERED: METOPROLOL TAR 25 MG TAB PO SCH (21:00)
[2021-12-24] MEDS ORDERED: ENOXAPARIN 40 MG/0.4 ML SQ SCH (09:00)
[2021-12-24] MEDS ORDERED: ASPIRIN EC 81 MG TAB PO SCH (09:00)
--- NOTE | 2021-12-25 | CON ---
Date of Consultation: 12/23/2021 Reason For Consultation: Chest pain. History Of Present Illness: Mr. Palencia is a 61-year-old white male. He is known to me from [facility] ous office visit. He has a history of hypertension and hypothyroidism, otherwise has been fairly hea lthy. He takes losartan and Synthroid at home. Apparently, he had an argument at home with his neph ew, after which he developed some substernal chest pressure that has lasted for hours without any stephanie sea, vomiting, diaphoresis, PND, orthopnea, pedal edema, palpitation, or syncope. He has already rul ed out for NE. His EKG was unremarkable. Chest x-ray was unremarkable. Troponin is negative. He i s pain free now. Past Medical History: As stated above. Allergies: NONE. Review of Systems: Negative. Social History: Negative. Family History: Negative. Medications: Listed earlier. Physical Examination: Vital Signs: Stable, afebrile. HEENT: Negative. Neck: Supple with no bruit. Chest: Clear to auscultation and percussion. Cardiac: Regular rhythm and rate. No murmurs, gallops, or rubs. Abdomen: Benign. EXTREMITIES: Revealed no clubbing, cyanosis, or edema. Diagnostic Data: As stated earlier. Impression And Plan: Atypical chest pain in a gentleman who is 61, has hypertension and hypothyroidi sm. with him going home today. I will arrange for him to have an outpatient MPI in the n ear future. No changes in medical therapy for now. Consider proton pump inhibitor. MARYAM/TEJINDER Voice ID: [id number] Report ID: [id number]
--- NOTE | 2021-12-26 09:46 | EKG ---
Test Date: 2021-12-23 Test Time: 07:31:13 [employer] Bookkeeper: RAINER MEASUREMENT RESULTS: Intervals: Rate: 71 ND: 164 QRSD: 96 QT: 402 QTc: 436 [place]: P: 20 ND: 164 QRS: 17 T: 50 INTERPRETIVE STATEMENTS: Normal sinus rhythm Normal ECG No previous ECG available for comparison Electronically Signed On 12-26-21 09:36:40 CDT by Don Castellon
== END 2021-12-23 16:48 | disposition home or self-care (01) ==
LOC: ER 07:26 → ERHOLD 10:01 → 2ND 13:07
PROVIDERS: ADMIT Internal Medicine; ATTEND Internal Medicine
DX: R07.89 Other chest pain (principal); I10 Essential (primary) hypertension; E03.9 Hypothyroidism, unspecified; R06.00 Dyspnea, unspecified; Z20.822 Contact with and (suspected) exposure to COVID-19; Z79.899 Other long term (current) drug therapy; Z82.49 Family history of ischemic heart disease and other diseases of the circulatory system
CPT/HCPCS: 93306; 85025; 80048; 36415; 83735; 85610; 80061; 80076; 84443; 81003; 84484 ×2; 83690; 83880; 71275; 71045; 96372; 96374; 99285; U0003; Q9967; J1650; 93005; G0378